=== PATIENT | female | born 1935 | race Caucasian/White ===

== ENCOUNTER 2016-10-09 10:04 | Emergency (ER) | payer MEDICARE, BC ==
[2016-10-09] MEDS ORDERED: SODIUM CHLORIDE 0.9% 1000 ML SOL IV SCH (10:45)
[2016-10-09 10:57] VITALS: RESP 18; TEMP 96
[2016-10-09 11:15] LABS: BASOPHILS % (AUTO) 1 % (0-3); EOSINOPHILS % (AUTO) 5 % (0-9); HEMATOCRIT 43 % (35-47); MEAN CORPUSCULAR HGB CONC 33.7 gm/dl (32.0-36.0); MEAN CORPUSCULAR VOLUME 89 fL (81-99); MONOCYTES % (AUTO) 8.9 % (0-12); NEUTROPHILS % (AUTO) 67.5 % (37-80)
[2016-10-09 11:29] LABS: ALBUMIN 3.6 gm/dl (3.4-5.0); CALCIUM 8.7 mg/dl (8.5-10.1); POTASSIUM 3.8 mMol/L (3.5-5.1)
[2016-10-09] MEDS ORDERED: LABETALOL HYDROCHLORIDE 5 MG/ML SOL IV ONE ×2 (12:54→12:55)
[2016-10-09 13:53] VITALS: BP 149/79; PULSE 79; O2SAT 98
== END 2016-10-09 13:40 | disposition home or self-care (01) | DRG 641 ==
LOC: ED 10:04
DX: E86.0 Dehydration (principal); I10 Essential (primary) hypertension
CPT/HCPCS: 36415; 70450; 71010; 80053; 85025; 85610; 85730; 93005; 99285